=== PATIENT | female | born 1985 | race American Indian/Alaskan Native ===

== ENCOUNTER 2017-10-03 22:45 | Emergency (ER) | payer OTHER ==
[2017-10-03 23:05] VITALS: BP 146/84; PULSE 74; RESP 20; TEMP 98.4; O2SAT 100
[2017-10-03] MEDS ORDERED: Naproxen 550 mg Tab PO STA (23:14)
[2017-10-03] MEDS ORDERED: Silver Sulfadiazine 1% Cream (20 gm) TOP STA (23:14)
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
[2017-10-03] MEDS ORDERED: Naproxen 550 mg Tab PO ONE (23:20)
[2017-10-03] MEDS ORDERED: Silver Sulfadiazine 1% Cream (20 gm) ONE (23:21)
== END 2017-10-03 23:36 | disposition home or self-care (01) ==
LOC: C.ER 22:45 → SUPCPDRO 22:45 → C.ER 23:36
DX: T22.232A Burn of second degree of left upper arm, initial encounter (principal); X10.1XXA Contact with hot food, initial encounter